=== PATIENT | male | born 1960 | race Caucasian/White ===

== ENCOUNTER → 2016-11-14 | Outpatient (CLI) | payer MEDICARE, OTHER ==
[~2016-11-14] VITALS: Ht 175.3 cm; Wt 114.0 kg
[~2016-11-14] MED LIST: ALLO300 PO; AMIT50TA3 PO; AMLO-512 PO; ASPI-556 PO; BENA1TAB17 PO; BUSP10TA23 PO; CANA300T PO; CHOL10002 PO; DICL4100G TP; DULO30CA2 PO; FLAX340P PO; GABA1TAB PO; GEMF600T3 PO; GLYB2.5 PO; LAMO100T56 PO; LIDO15CR11 TP; MELO-273 PO; METF10002 PO; MULT-75 PO; NAPR-58 PO; PANT40TA25 PO; PREG75 PO; TRAM50TA4 PO
[2016-11-14 09:20] VITALS: BP 115/69
[2016-11-14 11:47] LABS: GLUCOSE,POINT OF CARE 129 MG/DL (70-110)
== END | disposition home or self-care (01) ==
LOC: SRCNTR 09:15
PROVIDERS: ATTEND Hospitalist
DX: I10 Essential (primary) hypertension (principal); E78.5 Hyperlipidemia, unspecified; E11.21 Type 2 diabetes mellitus with diabetic nephropathy; M10.9 Gout, unspecified; F31.9 Bipolar disorder, unspecified; E66.01 Morbid (severe) obesity due to excess calories; E78.1 Pure hyperglyceridemia; M79.672 Pain in left foot; L91.8 Other hypertrophic disorders of the skin; M79.605 Pain in left leg
CPT/HCPCS: 82962; G0463

== ENCOUNTER → 2017-01-23 | Outpatient (CLI) | payer MEDICARE, OTHER ==
[~2017-01-23] VITALS: Ht 177.8 cm; Wt 114.0 kg
[~2017-01-23] MED LIST changes: -MELO-273 PO; -PREG75 PO; -TRAM50TA4 PO
[2017-01-23 11:36] VITALS: BP 109/71
[2017-01-23 13:06] LABS: GLUCOSE COMMENT 1 Doctor Notified; GLUCOSE,POINT OF CARE 99 MG/DL (70-110)
== END | disposition home or self-care (01) ==
LOC: SRCNTR 11:33
PROVIDERS: ATTEND Hospitalist
DX: E11.42 Type 2 diabetes mellitus with diabetic polyneuropathy (principal); R60.9 Edema, unspecified; M21.42 Flat foot [pes planus] (acquired), left foot; M20.42 Other hammer toe(s) (acquired), left foot; L03.116 Cellulitis of left lower limb; L84 Corns and callosities
CPT/HCPCS: 82962; G0463

== ENCOUNTER → 2017-05-01 | Outpatient (CLI) | payer MEDICARE, OTHER ==
[~2017-05-01] VITALS: Ht 175.3 cm; Wt 118.5 kg
[~2017-05-01] MED LIST changes: +ALPR-409 PO; +ISOS10TA16 PO; +METO-325 PO; +NITR0.4T27 SL; +PREG150C PO
[2017-05-01 09:34] VITALS: BP 124/74
[2017-05-01 13:52] LABS: GLUCOSE,POINT OF CARE 178 MG/DL (70-110)
== END | disposition home or self-care (01) ==
LOC: SRCNTR 09:25
PROVIDERS: ATTEND Hospitalist
DX: I10 Essential (primary) hypertension (principal); E11.65 Type 2 diabetes mellitus with hyperglycemia; E78.5 Hyperlipidemia, unspecified; E66.9 Obesity, unspecified; N40.1 Benign prostatic hyperplasia with lower urinary tract symptoms
CPT/HCPCS: 82962; G0463

== ENCOUNTER → 2017-06-26 | Outpatient (CLI) | payer MEDICARE, OTHER ==
[~2017-06-26] VITALS: Ht 175.3 cm; Wt 120.0 kg
[~2017-06-26] MED LIST changes: +GABA-583 PO; -GABA1TAB PO; -GLYB2.5 PO; -METO-325 PO; +METO50TA12 PO; -NAPR-58 PO; -NITR0.4T27 SL; +NITR0.4T50 SL
[2017-06-26 12:24] VITALS: BP 106/62
[2017-06-26 13:22] LABS: GLUCOSE,POINT OF CARE 127 MG/DL (70-110)
== END | disposition home or self-care (01) ==
LOC: SRCNTR 12:12
PROVIDERS: ATTEND Hospitalist
DX: I10 Essential (primary) hypertension (principal); E78.1 Pure hyperglyceridemia; F31.9 Bipolar disorder, unspecified; G47.33 Obstructive sleep apnea (adult) (pediatric); H35.30 Unspecified macular degeneration; K21.9 Gastro-esophageal reflux disease without esophagitis; K85.90 Acute pancreatitis without necrosis or infection, unspecified; L03.116 Cellulitis of left lower limb; M10.9 Gout, unspecified; N40.0 Benign prostatic hyperplasia without lower urinary tract symptoms; E11.42 Type 2 diabetes mellitus with diabetic polyneuropathy; M19.90 Unspecified osteoarthritis, unspecified site
CPT/HCPCS: 82962; G0463

== ENCOUNTER → 2017-09-18 | Outpatient (CLI) | payer MEDICARE, OTHER ==
[~2017-09-18] VITALS: Ht 176.5 cm; Wt 126.0 kg
[~2017-09-18] MED LIST changes: -ALPR-409 PO; +METO-558 PO; -METO50TA12 PO
[2017-09-18 12:39] VITALS: BP 121/69
[2017-09-18 16:27] LABS: GLUCOSE,POINT OF CARE 136 MG/DL (70-110)
== END | disposition home or self-care (01) ==
LOC: SRCNTR 12:35
PROVIDERS: ATTEND Hospitalist
DX: I10 Essential (primary) hypertension (principal); E11.21 Type 2 diabetes mellitus with diabetic nephropathy; E11.40 Type 2 diabetes mellitus with diabetic neuropathy, unspecified; M10.9 Gout, unspecified; F31.9 Bipolar disorder, unspecified; E78.5 Hyperlipidemia, unspecified; E66.01 Morbid (severe) obesity due to excess calories; E78.1 Pure hyperglyceridemia; M21.962 Unspecified acquired deformity of left lower leg; M21.42 Flat foot [pes planus] (acquired), left foot; M54.5 Low back pain
CPT/HCPCS: 82962; G0463

== ENCOUNTER → 2018-10-18 | Outpatient (CLI) | payer MEDICARE, OTHER ==
[~2018-10-18] VITALS: Ht 176.5 cm; Wt 128.0 kg
[~2018-10-18] MED LIST changes: +ALPR0.255 PO; +BETA50CR5 TP; -FLAX340P PO; -GEMF600T3 PO; +GEMF600T5 PO; -ISOS10TA16 PO; +ISOS30TA6 PO; +METF-446 PO; -METF10002 PO; -PANT40TA25 PO; -PREG150C PO
[2018-10-18 10:45] VITALS: BP 145/81
== END | disposition home or self-care (01) ==
LOC: SRCNTR 10:14
PROVIDERS: ATTEND Hospitalist
DX: I10 Essential (primary) hypertension (principal); E11.65 Type 2 diabetes mellitus with hyperglycemia; E11.40 Type 2 diabetes mellitus with diabetic neuropathy, unspecified; E11.21 Type 2 diabetes mellitus with diabetic nephropathy; E78.5 Hyperlipidemia, unspecified; K21.9 Gastro-esophageal reflux disease without esophagitis; M10.9 Gout, unspecified; F31.9 Bipolar disorder, unspecified; E78.1 Pure hyperglyceridemia; E66.01 Morbid (severe) obesity due to excess calories; Z98.890 Other specified postprocedural states
CPT/HCPCS: G0463

== ENCOUNTER → 2019-10-24 | Outpatient (CLI) | payer MEDICARE, OTHER ==
[~2019-10-24] VITALS: Ht 175.3 cm; Wt 125.0 kg
[~2019-10-24] MED LIST changes: -ALPR0.255 PO; -AMIT50TA3 PO; -AMLO-512 PO; +AMLO10TA7 PO; -BUSP10TA23 PO; +BUSP15 PO; -DICL4100G TP; +DULA0.75 SQ; -LIDO15CR11 TP; +PANT40TA25 PO; +ROPI0.257 PO
[2019-10-24 12:30] VITALS: BP 106/66
[2019-10-24 15:56] LABS: GLUCOMETER DEV NAME(LOC) SHC.; GLUCOSE,POINT OF CARE 213 MG/DL (70-110)
== END | disposition home or self-care (01) ==
LOC: SRCNTR 12:24
PROVIDERS: ATTEND Hospitalist
DX: E78.5 Hyperlipidemia, unspecified (principal); E11.40 Type 2 diabetes mellitus with diabetic neuropathy, unspecified; I10 Essential (primary) hypertension; E66.9 Obesity, unspecified; M16.11 Unilateral primary osteoarthritis, right hip; G89.4 Chronic pain syndrome; M10.9 Gout, unspecified; K21.9 Gastro-esophageal reflux disease without esophagitis; G47.33 Obstructive sleep apnea (adult) (pediatric); N40.0 Benign prostatic hyperplasia without lower urinary tract symptoms; E78.1 Pure hyperglyceridemia; M19.90 Unspecified osteoarthritis, unspecified site; H35.30 Unspecified macular degeneration
CPT/HCPCS: 82962; G0463

== ENCOUNTER → 2019-11-07 | Outpatient (CLI) | payer MEDICARE, OTHER ==
[~2019-11-07] VITALS: Ht 175.3 cm; Wt 126.0 kg
[2019-11-07 09:13] VITALS: BP 117/74
== END | disposition home or self-care (01) ==
LOC: SRCNTR 09:12
PROVIDERS: ATTEND Hospitalist
DX: E11.65 Type 2 diabetes mellitus with hyperglycemia (principal); E78.5 Hyperlipidemia, unspecified; I10 Essential (primary) hypertension; M10.9 Gout, unspecified; K21.9 Gastro-esophageal reflux disease without esophagitis; H35.30 Unspecified macular degeneration; F31.9 Bipolar disorder, unspecified; M19.90 Unspecified osteoarthritis, unspecified site; N40.0 Benign prostatic hyperplasia without lower urinary tract symptoms; E78.1 Pure hyperglyceridemia
CPT/HCPCS: G0463

== ENCOUNTER → 2020-05-07 | Outpatient (CLI) | payer MEDICARE, OTHER ==
[~2020-05-07] MED LIST changes: +ALLO-45 PO; -ALLO300 PO; +AMLO-258 PO; -AMLO10TA7 PO; -DULO30CA2 PO; +DULO30CA96 PO; +PANT-31 PO; -PANT40TA25 PO
== END | disposition home or self-care (01) ==
LOC: SRCNTR 13:38
PROVIDERS: ATTEND Hospitalist
DX: E11.42 Type 2 diabetes mellitus with diabetic polyneuropathy (principal); I10 Essential (primary) hypertension; E78.5 Hyperlipidemia, unspecified; M10.9 Gout, unspecified; K21.9 Gastro-esophageal reflux disease without esophagitis; F31.9 Bipolar disorder, unspecified; M19.90 Unspecified osteoarthritis, unspecified site; E78.1 Pure hyperglyceridemia
CPT/HCPCS: Q3014